=== PATIENT | male | born 1935 | race Caucasian/White ===

== ENCOUNTER 2017-12-24 08:46 | Inpatient (IN) | payer MEDICARE ==
[2017-12-20 16:34] LABS: BASOPHILS % (AUTO) 0.2 % (0-1); EOSINOPHILS # (AUTO) 0.1 X10'3 (0-0.9); EOSINOPHILS % (AUTO) 1.2 % (0-6); LYMPHOCYTES # (AUTO) 0.8 X10'3 (1.1-4.8); LYMPHOCYTES % (AUTO) 18.3 % (21-51); MEAN CORPUSCULAR HEMOGLOBIN 34.5 PG (27.0-31.0); MEAN CORPUSCULAR HGB CONC 34.6 % (33.0-36.5); MEAN CORPUSCULAR VOLUME 99.7 FL (78-98); MEAN PLATELET VOLUME 6.8 FL (7.4-10.4); MONOCYTES # (AUTO) 0.4 X10'3 (0-0.9); MONOCYTES % (AUTO) 8.5 % (2-12); NEUTROPHILS # (AUTO) 3.1 X10'3 (1.8-7.7); NEUTROPHILS % (AUTO) 71.8 % (42-75); PRE OP HEMATOCRIT 33.8 % (42.0-52.0); PRE OP HEMOGLOBIN 11.7 g/dL (14.0-17.9); RED BLOOD COUNT 3.39 X10'6 (4.70-6.10); RED CELL DISTRIBUTION WIDTH 15.7 % (11.5-14.5)
[2017-12-20 16:36] LABS: HEMOGLOBIN A1C 7.7 % (4.5-6.2)
[2017-12-20 16:37] LABS: PRE OP INR 1.1 INR; PRE OP PROTIME 11.4 SECONDS (9.0-12.0)
[2017-12-20 16:45] LABS: BLOOD UREA NITROGEN 28 MG/DL (7-18); CHLORIDE 106 MMOL/L (99-107); CREATININE 2.15 MG/DL (0.60-1.10); PRE OP ANION GAP 10 (8-16); PRE OP SODIUM 143 MMOL/L (135-145); TOTAL CARBON DIOXIDE 27.1 MMOL/L (24-32)
[2017-12-20 16:46] LABS: ALBUMIN 3.4 G/DL (3.4-5.0); ALBUMIN/GLOBULIN RATIO 0.9 (1.1-1.5); ALKALINE PHOSPHATASE 33 IU/L (46-116); CALCIUM 8.5 MG/DL (8.5-10.1); PRE OP ALT 43 U/L (30-65); PRE OP AST 26 U/L (10-37); PRE OP BILIRUB, TOTAL 0.5 MG/DL (0.0-1.0); eGFR 30 ML/MIN
[2017-12-20 16:47] LABS: PRE OP GLUCOSE 221 MG/DL (70-104)
[2017-12-20 16:53] LABS: PRE OP PLATELET COUNT 82 X10'3 (140-440)
[~2017-12-24] VITALS: Ht 175.3 cm; Wt 112.7 kg
[2017-12-24] VITALS (20 sets, daily range): BP systolic 88–155; BP diastolic 46–115
[~2017-12-24 08:46] MED LIST: ACYC400T PO; ALLO100T15 PO; ASPI-771 PO; ATOR40TA72 PO; BACDS PO; CALC600T18 PO; CARV3.123 PO; CHOL10002 PO; DOCUMENT DATE & TIME OF BETA-BLOCKER PO ONE; FENO160T13 PO; FERR325T32 PO; FURO20TA4 PO; LACT1CAP65 PO; LEVO175T7 PO; MULT-38 PO; OMEG-86 PO; OXYC-580 PO; PER10325T PO; cefazolin/dext.iso 2gm/50ml 50 ML IV ONE; famotidine 20mg tablet PO ONE; ringers solution, lacted 1,000 ML IV SCH; vancomycin inj 1,500 MG in normal saline 300ml IV soln IV ONE
[2017-12-24 10:31] LABS: BASOPHILS % (AUTO) 0.3 % (0-1); EOSINOPHILS # (AUTO) 0.1 X10'3 (0-0.9); EOSINOPHILS % (AUTO) 1.4 % (0-6); HEMATOCRIT 34.4 % (42.0-52.0); LYMPHOCYTES # (AUTO) 0.9 X10'3 (1.1-4.8); LYMPHOCYTES % (AUTO) 17.6 % (21-51); MEAN CORPUSCULAR HEMOGLOBIN 34.3 PG (27.0-31.0); MEAN CORPUSCULAR HGB CONC 34.9 % (33.0-36.5); MEAN CORPUSCULAR VOLUME 98.3 FL (78-98); MEAN PLATELET VOLUME 6.7 FL (7.4-10.4); MONOCYTES # (AUTO) 0.4 X10'3 (0-0.9); MONOCYTES % (AUTO) 7.6 % (2-12); NEUTROPHILS # (AUTO) 3.6 X10'3 (1.8-7.7); NEUTROPHILS % (AUTO) 73.1 % (42-75); PLATELET COUNT 102 X10'3 (140-440); RED CELL DISTRIBUTION WIDTH 15.6 % (11.5-14.5); WHITE BLOOD COUNT 4.9 X10'3 (4.5-11.0)
[2017-12-24] MEDS ORDERED: vancomycin 1,000mg inj ONE (10:36)
[2017-12-24] MEDS ORDERED: ROPIVAcaine 0.5% (5mg/ml) 30ml vial ONE ×2 (10:36→12:06)
[2017-12-24] MEDS ORDERED: ketorolac trometh. 30mg/ml inj. ONE (10:36)
[2017-12-24] MEDS ORDERED: fentaNYL/PF 50MCG/1 ML 2ML syringe ONE (12:09)
[2017-12-24] MEDS ORDERED: MIDAZolam 5mg/5ml vial ONE (12:09)
[2017-12-24] MEDS ORDERED: ringers solution, lacted 1,000 ML IV SCH (13:31)
[2017-12-24] MEDS ORDERED: ondansetron/PF 4mg/2ml inj IV PRN ×2 (13:35→14:25)
[2017-12-24] MEDS ORDERED: meperidine/PF 50mg/ml syringe IV PRN ×3 (13:35)
[2017-12-24] MEDS ORDERED: proCHLORperazine 10 MG/2 ml inj IV PRN (13:35)
[2017-12-24] MEDS ORDERED: morphine 2 MG/ML inj. syringe IV PRN ×2 (13:35)
[2017-12-24] MEDS ORDERED: rocuronium 10mg/ml inj IV ONE (14:00)
[2017-12-24] MEDS ORDERED: ePHEDrine 50MG/ML INJ. ONE (14:00)
[2017-12-24] MEDS ORDERED: propofol inj 20 ML IV ONE (14:00)
[2017-12-24] MEDS ORDERED: acetaminophen 325mg tablet PO PRN (14:25)
[2017-12-24] MEDS ORDERED: diphenhydrAMINE 25mg capsule PO PRN ×2 (14:25)
[2017-12-24] MEDS ORDERED: bisacodyl 10mg suppository rectal RC PRN (14:25)
[2017-12-24] MEDS ORDERED: HYDROmorphone inj. 0.5 MG/0.5 ML DISP.SYRIN IV PRN ×2 (14:25)
[2017-12-24] MEDS ORDERED: oxyCODONE IR 5mg (immed. release) tablet PO PRN ×2 (14:25)
[2017-12-24] MEDS ORDERED: magnesium hydroxide 30ml (MOM) UD suspension PO PRN (14:25)
[2017-12-24] MEDS ORDERED: oxyCODONE/APAP 10/325mg tablet PO PRN (14:25)
[2017-12-24] MEDS: cefazolin 1gm/NS 100mL 100 ML IV SCH ×2 (16:53→23:41)
[2017-12-24] MEDS: potassium cl 20mEq in 1/2 NS 1,000 ML IV SCH (16:54)
[2017-12-24] MEDS ORDERED: TRANEXAMIC ACID IV ONE (17:28)
[2017-12-24] MEDS ORDERED: NORMAL SALINE IV ONE (17:28)
[2017-12-24] MEDS ORDERED: vancomycin/NS 1 GM ADD-VANTAGE 250 ML IV SCH (20:00)
[2017-12-24] MEDS: carVEDilol 3.125mg tablet PO SCH (20:00)
[2017-12-24] MEDS: ketorolac tromethamine 15mg/ml inj. IV SCH (20:29)
[2017-12-24] MEDS: acetaminophen 325mg tablet PO SCH (20:29)
[2017-12-24] MEDS: gabapentin 300mg capsule PO SCH (20:29)
[2017-12-24] MEDS: ferrous sulfate 325mg tablet PO SCH (20:29)
[2017-12-24] MEDS ORDERED: sennosides 8.6mg tablet PO SCH (21:00)
[2017-12-25] MEDS: ketorolac tromethamine 15mg/ml inj. IV SCH ×2 (01:37→08:32)
[2017-12-25] MEDS: potassium cl 20mEq in 1/2 NS 1,000 ML IV SCH ×2 (01:37→06:22)
[2017-12-25] MEDS: acetaminophen 325mg tablet PO SCH ×2 (01:37→08:32)
[2017-12-25 02:00] VITALS: BP 110/48
[2017-12-25] MEDS: oxyCODONE IR 5mg (immed. release) tablet PO PRN ×2 (05:43→12:31)
[2017-12-25 06:00] VITALS: BP 100/46
[2017-12-25 06:28] LABS: BASOPHILS % (AUTO) 0 % (0-1); EOSINOPHILS % (AUTO) 0.7 % (0-6); HEMATOCRIT 27.8 % (42.0-52.0); HEMOGLOBIN 9.6 g/dl (14.0-17.9); LYMPHOCYTES # (AUTO) 0.3 X10'3 (1.1-4.8); LYMPHOCYTES % (AUTO) 5.9 % (21-51); MEAN CORPUSCULAR HEMOGLOBIN 34.3 PG (27.0-31.0); MEAN CORPUSCULAR HGB CONC 34.7 % (33.0-36.5); MEAN CORPUSCULAR VOLUME 98.9 FL (78-98); MEAN PLATELET VOLUME 6.7 FL (7.4-10.4); MONOCYTES # (AUTO) 0.2 X10'3 (0-0.9); MONOCYTES % (AUTO) 4.5 % (2-12); NEUTROPHILS # (AUTO) 4.6 X10'3 (1.8-7.7); NEUTROPHILS % (AUTO) 88.9 % (42-75); PLATELET COUNT 81 X10'3 (140-440); RED BLOOD COUNT 2.81 X10'6 (4.70-6.10); RED CELL DISTRIBUTION WIDTH 15.6 % (11.5-14.5); WHITE BLOOD COUNT 5.2 X10'3 (4.5-11.0)
[2017-12-25 06:42] LABS: ANION GAP 9 (8-16); CHLORIDE 108 MMOL/L (99-107); POTASSIUM 4.4 MMOL/L (3.5-5.1); SODIUM 140 MMOL/L (135-145); TOTAL CARBON DIOXIDE 22.7 MMOL/L (24-32)
[2017-12-25] MEDS ORDERED: furosemide 20MG tablet PO SCH (08:00)
[2017-12-25] MEDS ORDERED: levoTHYROXINE 175mcg tablet PO SCH (08:00)
[2017-12-25] MEDS ORDERED: sulfamethoxazole/trimethoprim DS (800/160mg) tablet PO SCH (08:00)
[2017-12-25] MEDS ORDERED: aspirin 325mg tablet PO SCH (08:30)
[2017-12-25] MEDS: ferrous sulfate 325mg tablet PO SCH (08:31)
[2017-12-25] MEDS: gabapentin 300mg capsule PO SCH (08:31)
[2017-12-25] MEDS: carVEDilol 3.125mg tablet PO SCH (08:31)
[2017-12-25 10:00] VITALS: BP 104/44
[2017-12-25] MEDS ORDERED: ASPI-1 PO (11:58)
[2017-12-26] MEDS ORDERED: acetaminophen 325mg tablet PO PRN (14:25)
[2017-12-26] MEDS ORDERED: celeCOXIB 100mg capsule PO SCH (20:00)
== END 2017-12-25 12:45 | disposition home or self-care (01) | DRG 483 ==
LOC: PRE-OP 08:46 → PAS IN 08:50 → EDSTATUS 09:00 → ORTHO 4S 16:00
PROVIDERS: ADMIT Orthopaedic Surgery; ATTEND Orthopaedic Surgery
PROC: 3E0T3BZ Introduction of Anesthetic Agent into Peripheral Nerves and Plexi, Percutaneous Approach (ICD-10-PCS; 2017-12-24)
PROC: 0RRJ00Z Replacement of Right Shoulder Joint with Reverse Ball and Socket Synthetic Substitute, Open Approach (ICD-10-PCS; principal; 2017-12-24 12:02)
DX: M75.121 Complete rotator cuff tear or rupture of right shoulder, not specified as traumatic (principal); C90.00 Multiple myeloma not having achieved remission; E11.22 Type 2 diabetes mellitus with diabetic chronic kidney disease; D50.0 Iron deficiency anemia secondary to blood loss (chronic); E03.9 Hypothyroidism, unspecified; G47.30 Sleep apnea, unspecified; I12.9 Hypertensive chronic kidney disease with stage 1 through stage 4 chronic kidney disease, or unspecified chronic kidney disease; N18.3 Chronic kidney disease, stage 3 (moderate); M19.011 Primary osteoarthritis, right shoulder; Z79.82 Long term (current) use of aspirin; Z79.899 Other long term (current) drug therapy; Z95.1 Presence of aortocoronary bypass graft; Z91.041 Radiographic dye allergy status; Z91.048 Other nonmedicinal substance allergy status
CPT/HCPCS: 36415; 80051; 80053; 82948; 83036; 85025; 85610; 85730; 86885; 86900; 86901; 87070; 93005; 97110; 97116; 97162; A4565; A7000; J0690; J1885; J2250; J2704; J2795; J3010; J3370; J7030; J7120